=== PATIENT | female | born 1995 | race Caucasian/White ===

== ENCOUNTER 2022-02-23 12:56 | Inpatient (IN) | payer BC ==
[2022-02-23 14:16] LABS: #Eosinphils 0.1 10x3/uL (0.0-0.5); #Monocytes 0.6 10x3/uL (0.0-1.1); #Neutrophils 13.3 10x3/uL (1.5-8.4); %Basophils 0.1 % (0.0-2.0); %Eosinophils 0.8 % (0.0-6.0); %Lymphocytes 4.9 % (18.0-47.0); %Monocytes 4.1 % (0.0-10.0); %Neutrophils 89.8 % (40.0-75.0); Hemoglobin 14.4 g/dL (12.0-15.5); Mean Corpuscular HGB CONC 34.4 g/dL (32.0-36.0); Mean Corpuscular Hemoglobin 30.2 pg (27.0-33.0); Mean Corpuscular Volume 87.6 fl (81.6-98.3); Mean Platelet Volume 10.8 fl (7.4-10.4); Platelet Count 427 10x3/uL (150-450); RBC Distribution Width 12.4 % (11.5-14.5); Red Blood Cell (RBC) Count 4.77 10x6/uL (3.90-5.03); White Blood Cell (WBC) Count 14.9 10x3/uL (3.5-10.5)
[2022-02-23 14:31] LABS: Bilirubin Neg (Negative); Blood, Urine 10 (Negative); Clarity Clear (Clear); Glucose, Urine (Dipstick) Normal (Negative); Ketone, Urine 5 mg/dL (Negative); Leukocyte 500 (Negative); Nitrite Negative (Negative); Protein, Urine (Dipstick) Negative (Neg-Trace); Urobilinogen Normal mg/dL (Less than 2)
[2022-02-23] MEDS ORDERED: Morphine 4 MG/ML VIAL ONE (14:33)
[2022-02-23 14:34] LABS: Pregnancy Test - Urine (BHCG) Negative (Negative); Pregu Control Background? CLEAR/WHITE (CLR/WHITE); Pregu Control Bar Appear? YES (CONTROL BAR)
[2022-02-23] MEDS ORDERED: Ondansetron PF 4 MG/2 ML Vial ONE (14:34)
[2022-02-23 14:41] LABS: Bacteria/HPF 1+ HPF (None Seen); RBC/HPF 0-3 HPF (0-3)
[2022-02-23 14:44] LABS: BHCG - Serum Negative (NEGATIVE); Pregs Control Background? CLEAR/WHITE (CLR/WHITE); Pregs Control Bar Appear? YES (CONTROL BAR)
[2022-02-23 14:52] LABS: ALT (SGPT) 13 U/L (8-55); AST (SGOT) 13 U/L (5-34); Albumin 4.2 g/dL (3.5-5.0); Alkaline Phosphatase 73 U/L (40-110); Anion Gap 14 mmol/L (10-20); BUN (Urea Nitrogen) 10 mg/dL (7.0-18.7); Bilirubin, Total 1.3 mg/dL (0.2-1.2); Calc. Creatinine Clearance 0 mL/min (70-130); Calcium 9.4 mg/dL (7.8-10.44); Carbon Dioxide 23 mmol/L (22-29); Chloride 106 mmol/L (98-107); Globulin 3.2 g/dL (2.4-3.5); Glucose 108 mg/dL (70-105); Lipase 16 U/L (8-78); Potassium 3.9 mmol/L (3.5-5.1); Protein, Total 7.4 g/dL (6.0-8.3); Sodium 139 mmol/L (136-145)
[2022-02-23] MEDS ORDERED: diphenhydrAMINE 50 MG/ML VIAL ONE (15:01)
[2022-02-23] MEDS ORDERED: Famotidine/PF 20 mg/2ml Vial ONE (15:02)
[2022-02-23] MEDS ORDERED: methylPREDNISolone Sod Succ 40 MG VIAL ONE (15:02)
[2022-02-23] MEDS ORDERED: cefTRIAXone\\ROCEPHIN 2 GM VIAL ONE (17:30)
[2022-02-23] MEDS ORDERED: Pantoprazole 40 MG VIAL ONE (17:31)
[2022-02-23] MEDS ORDERED: Mag-Al Plus 1200 MG/1200 MG/120 MG/30 ML UDCUP ONE (19:14)
[2022-02-23] MEDS ORDERED: Lidocaine Viscous Sol 2% 15 ml UD Cup ONE (19:14)
[2022-02-23] MEDS ORDERED: Senokot S 8.6-50 MG TAB PO PRN (19:15)
[2022-02-23] MEDS ORDERED: Zolpidem Tartrate 5 MG TAB PO PRN (19:15)
[2022-02-23] MEDS ORDERED: Acetaminophen 325 MG TAB PO PRN (19:15)
[2022-02-23] MEDS ORDERED: HYDROcodone/Acetaminophen 5/325 mg Tablet PO PRN (19:15)
[2022-02-23] MEDS ORDERED: Famotidine/PF 20 mg/2ml Vial SLOW IVP SCH (19:15)
[2022-02-23] MEDS ORDERED: Calcium Carbonate 500 MG ChewTAB PO PRN (19:15)
[2022-02-23] MEDS ORDERED: Morphine 2 MG/ML VIAL SLOW IVP PRN (19:19)
[2022-02-23 22:02] VITALS: BMI 33.9
[2022-02-23] MEDS: Sucralfate 1 GM TAB PO SCH (22:34)
[2022-02-23] MEDS: Lactated Ringer's 1,000 ML IV SCH (22:36)
[2022-02-23 23:08] LABS: SARS-CoV-2 NAA Rapid Test Not Detected (NotDetected)
[2022-02-23] MEDS: Ondansetron PF 4 MG/2 ML Vial IVP PRN (23:50)
[2022-02-24 05:31] LABS: #Monocytes 0.6 10x3/uL (0.0-1.1); #Neutrophils 8.8 10x3/uL (1.5-8.4); %Basophils 0.1 % (0.0-2.0); %Monocytes 5.5 % (0.0-10.0); Hemoglobin 11.2 g/dL (12.0-15.5); Mean Corpuscular HGB CONC 33.6 g/dL (32.0-36.0); Mean Corpuscular Hemoglobin 30.1 pg (27.0-33.0); Mean Corpuscular Volume 89.5 fl (81.6-98.3); Mean Platelet Volume 9.7 fl (7.4-10.4); Platelet Count 384 10x3/uL (150-450); RBC Distribution Width 12.2 % (11.5-14.5); Red Blood Cell (RBC) Count 3.72 10x6/uL (3.90-5.03)
[2022-02-24 05:37] LABS: Anion Gap 13 mmol/L (10-20); BUN (Urea Nitrogen) 7 mg/dL (7.0-18.7); Calc. Creatinine Clearance 193 mL/min (70-130); Calcium 8.6 mg/dL (7.8-10.44); Carbon Dioxide 22 mmol/L (22-29); Chloride 109 mmol/L (98-107); Glucose 104 mg/dL (70-105); Potassium 3.9 mmol/L (3.5-5.1); Sodium 140 mmol/L (136-145)
[2022-02-24] MEDS: Lactated Ringer's 1,000 ML IV SCH ×2 (07:25→16:33)
[2022-02-24 08:25] LABS: ALT (SGPT) 29 U/L (8-55); AST (SGOT) 24 U/L (5-34); Albumin 3.5 g/dL (3.5-5.0); Alkaline Phosphatase 70 U/L (40-110); Bilirubin, Direct 0.3 mg/dL (0.1-0.3); Bilirubin, Total 0.7 mg/dL (0.2-1.2); Protein, Total 6.3 g/dL (6.0-8.3)
[2022-02-24] MEDS: Pantoprazole 40 MG VIAL IVP SCH ×2 (09:04→20:28)
[2022-02-24] MEDS: Loratadine 10 MG TAB PO SCH (09:04)
[2022-02-24] MEDS: Sucralfate 1 GM TAB PO SCH ×4 (09:05→20:26)
[2022-02-24] MEDS: Ondansetron PF 4 MG/2 ML Vial IVP PRN ×2 (09:08→16:36)
[2022-02-24 12:10] LABS: Hemoglobin A1c 5.2 % (4.0-6.0)
[2022-02-24] MEDS ORDERED: Metoclopramide HCl 10 MG/2 ML VIAL IVP PRN (15:16)
[2022-02-24] MEDS ORDERED: Lidocaine 2% Viscous Solution 20 ML, Aluminum & Magnesium Hydroxide 30 ML SSW SCH (15:30)
[2022-02-24] MEDS ORDERED: cefTRIAXone\\ROCEPHIN 1 GM in Sodium Chloride 0.9% 100 ML IVPB SCH (16:00)
[2022-02-25 05:27] LABS: ALT (SGPT) 25 U/L (8-55); AST (SGOT) 19 U/L (5-34); Albumin 3.2 g/dL (3.5-5.0); Alkaline Phosphatase 56 U/L (40-110); Anion Gap 13 mmol/L (10-20); BUN (Urea Nitrogen) 8 mg/dL (7.0-18.7); Bilirubin, Direct 0.2 mg/dL (0.1-0.3); Bilirubin, Total 0.4 mg/dL (0.2-1.2); Calc. Creatinine Clearance 169 mL/min (70-130); Calcium 8.6 mg/dL (7.8-10.44); Carbon Dioxide 23 mmol/L (22-29); Cardiac Risk 4.2 (Less than 4.5); Chloride 109 mmol/L (98-107); Cholesterol 123 mg/dl (< 200 Desired); Glucose 81 mg/dL (70-105); HDL Cholesterol 29 mg/dL (>60 Neg Risk); LDL Cholesterol, Calculated 65 mg/dL; Magnesium 1.9 mg/dL (1.6-2.6); Potassium 3.7 mmol/L (3.5-5.1); Protein, Total 5.6 g/dL (6.0-8.3); Sodium 141 mmol/L (136-145); Triglycerides 143 mg/dL (Less than 150)
[2022-02-25 05:29] LABS: Hemoglobin 10.3 g/dL (12.0-15.5); Mean Corpuscular HGB CONC 33.3 g/dL (32.0-36.0); Mean Corpuscular Hemoglobin 29.6 pg (27.0-33.0); Mean Corpuscular Volume 88.8 fl (81.6-98.3); Mean Platelet Volume 9.6 fl (7.4-10.4); Platelet Count 317 10x3/uL (150-450); RBC Distribution Width 12.4 % (11.5-14.5); Red Blood Cell (RBC) Count 3.48 10x6/uL (3.90-5.03); White Blood Cell (WBC) Count 6.2 10x3/uL (3.5-10.5)
[2022-02-25 05:57] LABS: MDiff Complete? YES
[2022-02-25 06:01] LABS: Band 7 % (5-11); Eosinophils 4 % (0-10); Lymphocytes 33 % (21-51); Monocytes 6 % (0-10); Neutrophil 42 % (42-75); Reactive Lymphocytes 8 % (0-10)
[2022-02-25 06:04] LABS: Platelet Morphology Comment Appears Adequate
[2022-02-25 06:05] LABS: RBC Morphology Normal
[2022-02-25] MEDS: Pantoprazole 40 MG VIAL IVP SCH ×2 (09:47→20:26)
[2022-02-25] MEDS: Loratadine 10 MG TAB PO SCH (09:47)
[2022-02-25] MEDS: Sucralfate 1 GM TAB PO SCH ×2 (09:47→19:43)
[2022-02-25 11:35] LABS: Bilirubin Neg (Negative); Blood, Urine Negative (Negative); Clarity Clear (Clear); Glucose, Urine (Dipstick) Normal (Negative); Ketone, Urine 15 mg/dL (Negative); Leukocyte 500 (Negative); Nitrite Negative (Negative); Protein, Urine (Dipstick) Negative (Neg-Trace); Specific Gravity, Urine 1.005 (1.002-1.036); Urobilinogen Normal mg/dL (Less than 2)
[2022-02-25 12:05] LABS: Bacteria/HPF 1+ HPF (None Seen); RBC/HPF 0-3 HPF (0-3); Squamous Epithelial 0-3 HPF (0-3)
[2022-02-25] MEDS: Ondansetron PF 4 MG/2 ML Vial IVP PRN (12:11)
[2022-02-25] MEDS ORDERED: PROPOFOL 20 ML ONE ×2 (14:52→15:12)
[2022-02-25] MEDS ORDERED: Midazolam HCl 2 mg/2 ml Vial ONE (14:53)
[2022-02-25] MEDS ORDERED: Fentanyl 100 MCG/2 ML VIAL ONE (14:53)
[2022-02-25] MEDS ORDERED: Lidocaine 1% PF 5 ML VIAL ONE (15:03)
[2022-02-25 20:56] VITALS: BP 106/56; TEMP 98.2
== END 2022-02-25 20:30 | disposition home or self-care (01) | DRG 392 ==
LOC: CSHERS 12:56 → CSHTELE 21:51 → OBSVTOIN 02-25 14:23
PROVIDERS: ADMIT Student in an Organized Health Care Education/Training Program; ATTEND Family Medicine
PROC: 0DB98ZX Excision of Duodenum, Via Natural or Artificial Opening Endoscopic, Diagnostic (ICD-10-PCS; principal; 2022-02-25)
DX: R10.13 Epigastric pain (principal); R65.10 Systemic inflammatory response syndrome (SIRS) of non-infectious origin without acute organ dysfunction; K44.9 Diaphragmatic hernia without obstruction or gangrene; K21.9 Gastro-esophageal reflux disease without esophagitis; G43.909 Migraine, unspecified, not intractable, without status migrainosus; E86.0 Dehydration; R00.0 Tachycardia, unspecified; D72.829 Elevated white blood cell count, unspecified; R11.2 Nausea with vomiting, unspecified; R19.7 Diarrhea, unspecified; R63.0 Anorexia; D64.9 Anemia, unspecified; Z20.822 Contact with and (suspected) exposure to COVID-19; Z79.899 Other long term (current) drug therapy; Z91.041 Radiographic dye allergy status; Z79.891 Long term (current) use of opiate analgesic; Z98.890 Other specified postprocedural states; Z90.49 Acquired absence of other specified parts of digestive tract; Z85.028 Personal history of other malignant neoplasm of stomach; Z68.33 Body mass index [BMI] 33.0-33.9, adult
CPT/HCPCS: 36415; 71045; 74176; 80048; 80053; 80061; 80076; 81001; 81003; 81015; 81025; 83036; 83605; 83630; 83690; 83735; 84443; 84703; 85025; 87040; 87045; 87046; 87081; 87086; 87324; 87328; 87329; 87427; 87449; 88305; 93005; 94760; 96361; 96365; 96375; 96376; C9113; G0378; J0696; J1200; J2250; J2270; J2405; J2704; J2920; J3010; J3370; J7120; S0028

== ENCOUNTER 2023-01-10 23:08 | Emergency (ER) | payer BC ==
[2023-01-11] MEDS ORDERED: Ketorolac Tromethamine 30 MG/ML VIAL ONE (00:15)
== END 2023-01-11 00:39 | disposition home or self-care (01) ==
LOC: CSHERS 23:08
DX: M54.12 Radiculopathy, cervical region (principal); M79.602 Pain in left arm
CPT/HCPCS: 96372; 99283; J1885